=== PATIENT | female | born 1985 | race Caucasian/White ===

== ENCOUNTER → 2017-08-03 14:27 | Outpatient (CLI) | payer BC, SELFPAY ==
[2017-08-03 15:58] LABS: Absolute Lymphocyte Count 1.61 X10^3/ul (0.83-4.51); Absolute Neutrophil Count 3.5 X10^3/uL (2.0-7.7); Basophil# 0.04 X10^3/uL; Basophil% 0.7 % (0-1); Eosinophils% 3.4 % (0-5); Hematocrit 37.9 % (37-47); Hemoglobin 13.2 g/dl (12.0-15.0); Lymphocyte # 1.61 X10^3/ul (4.0); Lymphocyte % 27.7 % (19-41); Mean Corp Hgb Conc 34.8 g/gl (32-36); Mean Corpuscular Hgb 31.4 pg (27.0-32.0); Mean Corpuscular Volume 90.2 fL (81-99); Mean Platelet Vol. 9.3 fl (6.2-12.0); Monocyte# 0.44 X10^3/uL; Monocyte% 7.6 % (0-10); Neutrophil # 3.52 X10^3/uL (2.7-7.7); Neutrophil % 60.4 % (47-70); POSITIVE COUNT NO; POSITIVE DIFFERENTIAL NO; POSITIVE MORPHOLOGY NO; Platelet Count 242 K/mm3 (150-450); RBC Distribution Width CV 12.3 % (11.6-14.6); RBC Distribution Width SD 39.8 fl (35.1-43.9); White Blood Count 5.8 K/mm3 (4.4-11.0)
[2017-08-03 16:01] LABS: Color, Urine Straw (Yellow); Glucose, Dipstick Normal (Normal); Ketone-Dipstick Negative (Negative); Leukocyte Esterase-Dipstick Negative /ul (Negative); Nitrite-Dipstick Negative (Negative); Occult Blood-Urine Negative /ul (Negative); Protein-Dipstick Negative (Negative); Urine Bilirubin Dipstick Negative (Negative); Urine Clarity Clear (Clear); Urine Urobilinogen Normal (Normal)
[2017-08-03 16:16] LABS: Thyroid Stim Hormone (TSH) 1.97 uIU/mL (0.358-3.74)
[2017-08-03 16:27] LABS: Amphetamine Urine VISTA NEGATIVE (<1000 ng/mL); Barbiturate Urine VISTA NEGATIVE (< 200 ng/mL); Benzodiazepine Urine VISTA NEGATIVE (< 200 ng/mL); Cocaine Urine VISTA NEGATIVE (< 300 ng/mL); Ecstacy Urine VISTA NEGATIVE (< 500 ng/mL); Methadone Urine VISTA NEGATIVE (< 300 ng/mL); PCP Urine VISTA NEGATIVE (< 25 ng/mL); THC Urine VISTA NEGATIVE (< 50 ng/mL); Vista UDS pH Range 5
[2017-08-03 17:05] LABS: HIV - WCH Non-Reactive (Nonreactive); Rubella IgG > 500.0 IU/mL
[2017-08-05 08:01] LABS: HEPATITIS B SURFACE AG Negative (Negative); Hep C Antibodies <0.1 s/co ratio (0.0-0.9)
[2017-08-07 07:08] LABS: Prenatal RPR NONREACTIVE (NONREACTIVE)
== END ==
PROVIDERS: Visit Provider Obstetrics & Gynecology
DX: Z34.81 Encounter for supervision of other normal pregnancy, first trimester (principal); Z3A.00 Weeks of gestation of pregnancy not specified
CPT/HCPCS: 36415; 80307; 81002; 84443; 85025; 86703; 86762; 86803; 87340

== ENCOUNTER → 2017-11-30 11:20 | Outpatient (CLI) | payer BC, SELFPAY ==
[2017-11-30 12:08] LABS: Hematocrit 33.5 % (37-47); Hemoglobin 11.5 g/dl (12.0-15.0); Mean Corp Hgb Conc 34.3 g/gl (32-36); Mean Corpuscular Hgb 32.2 pg (27.0-32.0); Mean Corpuscular Volume 93.8 fL (81-99); Mean Platelet Vol. 9.5 fl (6.2-12.0); Platelet Count 218 K/mm3 (150-450); RBC Distribution Width CV 13.2 % (11.6-14.6); RBC Distribution Width SD 45.4 fl (35.1-43.9); Red Blood Count 3.57 M/mm3 (4.2-5.4); White Blood Count 7.6 K/mm3 (4.4-11.0)
[2017-11-30 12:10] LABS: Scan Indicated on CBC? Y/N NO
[2017-11-30 12:19] LABS: AST(SGOT) 13 U/L (15-37); Alanine Aminotransfer ALT/SGPT 14 U/L (13-56); Albumin, Serum 2.7 g/dL (3.2-5.0); Alkaline Phosphatase 65 U/L (45-117); Bilirubin, Direct 0.08 mg/dL (0.00-0.30); Globulin 3.6 g/dL (2.2-4.2); Glucose Challenge Gest 1H 50g 81 mg/dL (70-140); Protein, Total 6.3 g/dL (6.4-8.2)
== END ==
PROVIDERS: Visit Provider Obstetrics & Gynecology
DX: Z34.83 Encounter for supervision of other normal pregnancy, third trimester (principal)
CPT/HCPCS: 36415; 80076; 82950; 85027

== ENCOUNTER → 2018-01-11 11:40 | Outpatient (CLI) | payer BC, SELFPAY ==
[2018-01-11 13:39] LABS: Hematocrit 35.1 % (37-47); Hemoglobin 12.4 g/dl (12.0-15.0); Mean Corp Hgb Conc 35.3 g/gl (32-36); Mean Corpuscular Hgb 33.2 pg (27.0-32.0); Mean Corpuscular Volume 93.9 fL (81-99); Mean Platelet Vol. 10.1 fl (6.2-12.0); Platelet Count 246 K/mm3 (150-450); RBC Distribution Width CV 12.7 % (11.6-14.6); Red Blood Count 3.74 M/mm3 (4.2-5.4); White Blood Count 10.1 K/mm3 (4.4-11.0)
[2018-01-11 13:40] LABS: Scan Indicated on CBC? Y/N NO
[2018-01-11 13:49] LABS: Protein, Urine (Random) 14.7 mg/dL (<11.9)
[2018-01-11 13:52] LABS: AST(SGOT) 17 U/L (15-37); Alanine Aminotransfer ALT/SGPT 17 U/L (13-56); Albumin, Serum 2.8 g/dL (3.2-5.0); Alkaline Phosphatase 102 U/L (45-117); Bilirubin, Direct 0.07 mg/dL (0.00-0.30); Globulin 4.1 g/dL (2.2-4.2); Protein, Total 6.9 g/dL (6.4-8.2)
== END ==
PROVIDERS: Visit Provider Obstetrics & Gynecology
DX: O26.893 Other specified pregnancy related conditions, third trimester (principal); R10.11 Right upper quadrant pain; Z3A.00 Weeks of gestation of pregnancy not specified
CPT/HCPCS: 36415; 80076; 82570; 84156; 85027

== ENCOUNTER → 2018-01-26 10:43 | Outpatient (CLI) | payer BC, SELFPAY ==
[2018-01-26 15:28] LABS: Group B Strep DNA By PCR Negative (Negative); Internal Control PASS; Probe Check PASS; Specimen Processing Control PASS
== END ==
PROVIDERS: Visit Provider Obstetrics & Gynecology
DX: Z36.85 Encounter for antenatal screening for Streptococcus B (principal)
CPT/HCPCS: 87081; 87653

== ENCOUNTER 2018-02-18 10:45 | Inpatient (IN) | payer BC, SELFPAY ==
[2018-02-18] MEDS: Lactated Ringers 1,000 ML 50 ML IV (11:20)
[2018-02-18 11:54] LABS: Hematocrit 35.7 % (37-47); Hemoglobin 12.4 g/dl (12.0-15.0); Mean Corp Hgb Conc 34.7 g/gl (32-36); Mean Corpuscular Volume 92.2 fL (81-99); Mean Platelet Vol. 10.1 fl (6.2-12.0); Platelet Count 236 K/mm3 (150-450); RBC Distribution Width CV 12.8 % (11.6-14.6); Red Blood Count 3.87 M/mm3 (4.2-5.4); Scan Indicated on CBC? Y/N NO; White Blood Count 8.7 K/mm3 (4.4-11.0)
[2018-02-18 12:08] VITALS: BMI 29.6
[2018-02-18 12:14] LABS: ROM Internal Control Test YES-OK TO RESULT pt. (Internal QC)
[2018-02-18 12:16] LABS: ROM Patient Test POSITIVE (Negative)
[2018-02-18] MEDS: Oxytocin 30 units/NS 500 ml 30 UNITS/500 ML IV.SOLN 334 UNITS IV (14:32)
--- NOTE | 2018-02-18 14:43 | PCM.OB.VAG ---
Vaginal Delivery Maternal Presentation: Active Labor, Spontaneous Rupture of Membranes Amniotic Membrane Rupture Type: Spontaneous at home Amniotic Fluid Description: Clear Final GERMAIN: 02/18/18 Final GERMAIN Source: US <20 weeks Gestational age: 40 Weeks and 0 Days Date of Procedure: 02/18/18 Pre-Operative Diagnosis: IUP Post-Operative Diagnosis: IUP Surgery/ Procedure Performed: Spontaneous Vaginal Delivery Type of Anesthesia: None Description of Procedure: Spontaneous vaginal delivery of a viable male infant with Apgars of 8/9 from an occiput anterior presentation with clear amniotic fluid and normal three-vessel placenta. No episiotomy. First-degree midline laceration repaired with 3-0 Rapide suture. Sponge counts okay. Delivery physician: Zion Pepper MD. Presentation: Vertex Placental Delivery Description: Spontaneous Placenta Disposition: [facility] Cord Vessel Description: 3 Vessels Cord Gases drawn per routine: ABG Cord Entanglement: None Estimated Blood Loss: 250 cc Infant A gender: Male (1 minute): 8 (5 minute): 9 Episiotomy Description: None Laceration: Midline, 1st degree Medications given after delivery: IV Pitocin Complications: None
--- NOTE | 2018-02-18 14:45 | PCM.DCVAG ---
Discharge Diet: No Restrictions Discharge Activity: May Shower, May Take a Tub Bath May resume sexual activity in: 4-6 weeks Additional Activity Instructions:: Nothing in the vagina for 4-6 weeks. You may return to work/school in 6 weeks. Call your doctor if you observe: Fever of 101 or Higher, Inability to urinate, Inability to have a bowel movement, Using more than one pad per hour Additional Instructions: If you experience any of the following, contact your healthcare provider. Bleeding that soaks a pad every hour for 2 hours Unrelieved incision or abdominal pain Swelling, redness, discharge or bleeding from your incision or episiotomy site Your incision begins to separate Problems urinating (including inability to urinate or burning while urinating). Visual changes Severe headache Flu-like symptoms Pain or redness in one of both of your breasts Pain, warmth, tenderness or swelling in your legs, especially the calf area Frequent nausea and vomiting Symptoms of depression or anxiety If you experience any of the following, call 911 or go to the nearest Emergency Room. Chest pain Problems breathing Seizure activity Partial or complete paralysis of a body part, slurred speech, weakness or drooping of the face, or a sudden inability to walk or hold your balance Allergies/Adverse Reactions: Allergies banana [Banana] Allergy (Verified 03/26/13 08:00) Anaphylaxis kiwi Allergy (Verified 03/26/13 07:58) Anaphylaxis beans Allergy (Uncoded 03/26/13 08:00) Anaphylaxis Medications to take at Discharge Vits [Prenatabs FA ] 1 dose PO DAILY 03/26/13 Please Follow Up With: Arely Helton MD - [phone] When: Call to make an appointment with your doctor in 6 weeks. Test Results: Test results from this visit will be discussed in further detail at your follow-up appointment, if applicable.
[2018-02-18] MEDS: Oxytocin 30 units/NS 500 ml 30 UNITS/500 ML IV.SOLN 167 UNITS IV (15:02)
[2018-02-18] MEDS: Ibuprofen 600 MG Tablet PO (16:06)
[2018-02-18 20:14] VITALS: BP 119/68; PULSE 98; RESP 16; TEMP 36.6
[2018-02-18 23:58] VITALS: BP 132/66; PULSE 79; RESP 16; TEMP 36.3
[2018-02-19 04:32] VITALS: BP 124/69; PULSE 78; RESP 16; TEMP 36.1
--- NOTE | 2018-02-19 07:31 | PCM.PN.OB ---
Subjective: PPD#1 Precipitous delivery Doing well and would like to go home today. Bottle feeding. - Physical Exam General: Alert, Oriented x3, Cooperative, No apparent distress HEENT: Atraumatic Neck: Supple Abdomen: Soft - Fundus firm NT at umbilicus Neurological: Cranial nerves II-XII grossly intact Psych/Mental Status: Normal Affect Vital Signs Temp Pulse Resp BP 96.9 F L 78 16 124/69 H 02/19/18 04:32 02/19/18 04:32 02/19/18 04:32 02/19/18 04:32 Oxygen Delivery Method Room Air Weight: 85.729 kg Body Mass Index (BMI) 29.6 Laboratory Tests Past 24 Hrs 02/18/18 02/18/18 02/18/18 11:28 11:28 11:50 WBC 8.7 RBC 3.87 L Hgb 12.4 Hct 35.7 L MCV 92.2 MCH 32.0 MCHC 34.7 RDW 12.8 RDW Differential 43.0 Plt Count 236 MPV 10.1 Vag Amniotic Fld Detect POSITIVE H Blood Type A POSITIVE Antibody Screen NEGATIVE Medical Necessity - Tobacco Use Smoking Status: Never smoker Assessment/Plan PPD#1 Stable pp Dischg home today if baby is released. RTO in 6 wk to ofc for pp check, prn sooner.
[2018-02-19 08:50] VITALS: BP 132/69; PULSE 82; RESP 16; TEMP 36.6
[2018-02-19 12:00] VITALS: BP 122/73; PULSE 82; RESP 16; TEMP 36.2
== END 2018-02-19 16:15 | disposition home or self-care (01) | DRG 775 ==
PROVIDERS: Admitting Provider Obstetrics & Gynecology; Visit Provider Obstetrics & Gynecology
DX: O62.3 Precipitate labor (principal); O70.0 First degree perineal laceration during delivery; Z3A.40 40 weeks gestation of pregnancy; Z37.0 Single live birth
CPT/HCPCS: 59025; 59050; 84112; 85027; 86850; 86900; 99218; J7120; G0378

== ENCOUNTER → 2021-06-12 10:31 | Outpatient (CLI) | payer OTHER, SELFPAY ==
[2021-06-12 12:24] LABS: Absolute Neutrophil Count 4.2 X10^3/uL (2.0-7.7); Basophil# 0.04 X10^3/uL; Basophil% 0.6 % (0-1); Eosinophil# 0.15 X10^3/uL; Eosinophils% 2.4 % (0-5); Hematocrit 38.5 % (37-47); Hemoglobin 12.9 g/dL (12.0-15.0); Lymphocyte % 22.5 % (19-41); Mean Corp Hgb Conc 33.5 g/dL (32-36); Mean Corpuscular Hgb 31.1 pg (27.0-32.0); Mean Corpuscular Volume 92.8 fL (81-99); Mean Platelet Vol. 9.4 fl (6.2-12.0); Monocyte# 0.44 X10^3/uL; Monocyte% 7.1 % (0-10); NRBC Flagged by Analyzer 0 % (0-5); Neutrophil # 4.19 X10^3/uL (2.7-7.7); Neutrophil % 67.2 % (47-70); Platelet Count 307 K/mm3 (150-450); RBC Distribution Width CV 11.7 % (11.6-14.6); RBC Distribution Width SD 39.1 fl (35.1-43.9); Red Blood Count 4.15 M/mm3 (4.2-5.4); White Blood Count 6.2 K/mm3 (4.4-11.0)
[2021-06-12 12:50] LABS: ALB/GLOB Ratio 0.8 RATIO (0.9-2.4); AST(SGOT) 13 U/L (15-37); Alanine Aminotransfer ALT/SGPT 21 U/L (13-56); Albumin, Serum 3.1 g/dL (3.2-5.0); Alkaline Phosphatase 55 U/L (45-117); Anion Gap 8 (5-15); BUN 16 mg/dL (7-18); BUN/Creat Ratio 27.2 RATIO (10-20); Calcium,Total 8.6 mg/dL (8.5-10.1); Chloride 105 mmol/L (98-107); Cholesterol 203 mg/dL (200); Creatinine, Serum 0.59 mg/dL (0.55-1.02); EST Glomerular Filtration Rate 123 mL/min (>60); Est Glom Filt Rate - Afr Amer 149 mL/min (>60); Globulin 3.9 g/dL (2.2-4.2); Glucose 94 mg/dL (74-106); High Density Lipoprotein 61 mg/dL; Potassium 3.7 mmol/L (3.5-5.1); Sodium Level 139 mmol/L (136-145); Thyroid Stim Hormone (TSH) 2.88 uIU/mL (0.358-3.74); Triglycerides 178 mg/dL; Very Low Density Lipoprotein 36 mg/dL (5-40)
== END ==
PROVIDERS: Visit Provider Family Medicine
DX: Z00.00 Encounter for general adult medical examination without abnormal findings (principal); K21.9 Gastro-esophageal reflux disease without esophagitis
CPT/HCPCS: 36415; 80053; 80061; 84443; 85025

== ENCOUNTER → 2024-04-12 | Outpatient (CLI) | payer OTHER, SELFPAY ==
--- NOTE | 2024-04-12 11:05 | RAD_ITS ---
INDICATION: radiculopathy, cervical region EXAMINATION/TECHNIQUE: X-RAY - XR Spine Cervical 2 or 3 Views COMPARISON: No relevant prior comparison study available FINDINGS: VERTEBRAE: Preserved vertebral body height. No fracture. No spondylolisthesis. Preservation of the normal cervical lordosis. No significant facet arthropathy. DISCS: Disc spaces are maintained. NECK SOFT TISSUES: No prevertebral soft tissue widening. LUNG APICES: Clear. RAD/Cerv Spine 2 or 3 Views IMPRESSION: No significant abnormality is seen.. Electronically Signed: Rony Robles MD at 12:58 EDT ,
== END | disposition home or self-care (01) ==
PROVIDERS: PCP Family Medicine; Referring Provider Family Medicine; Visit Provider Family Medicine
DX: M54.12 Radiculopathy, cervical region (principal)
CPT/HCPCS: 72040

== ENCOUNTER → 2024-08-22 | Outpatient (CLI) | payer OTHER, SELFPAY ==
--- NOTE | 2024-08-22 08:48 | BI_ITS ---
PROCEDURE: DIAG MAMM W/CAD, BILAT REASON FOR EXAM: F, Age 38 y/o, left axillary pain due to recent injury. Aunts with breast cancer. TECHNIQUE: Bilateral screening digital breast tomosynthesis with 2D and 3D images. Computer aided detection. COMPARISON: None. This is a baseline mammogram. FINDINGS: The breasts are extremely dense which lowers the sensitivity of mammography. With the patient's history of left axillary pain, sonographic correlation recommended. No suspicious masses, areas of developing architectural distortion, or suspicious calcifications. BI/DIAG MAMM W/CAD, BILAT IMPRESSION: BI-RADS 0: INCOMPLETE - NEED ADDITIONAL IMAGING EVALUATION. Follow-up code: Sonographic correlation of the axillary region of the left josh st. The patient will be notified of the results by letter. Reading Location: [place] [id number]
--- NOTE | 2024-08-22 08:52 | US_ITS ---
PROCEDURE: EXT NON VASC LIMITED/SOFT TISS REASON FOR EXAM: Left axillary lump following prior injury. TECHNIQUE: Ultrasound imaging of the left axilla was obtained.. COMPARISON: None. FINDINGS: There are 3 benign-appearing left axillary lymph nodes. The largest measures 1.9 cm x 1.4 cm x 0.6 cm. US/Ext Non Vasc Limited/Soft Tiss IMPRESSION: Findings suggestive of 3 benign-appearing axillary lymph nodes as described. Reading Location: [facility]
== END | disposition home or self-care (01) ==
LOC: OPBI 08:48
PROVIDERS: PCP Family Medicine; Referring Provider Family Medicine; Visit Provider Family Medicine
DX: R22.32 Localized swelling, mass and lump, left upper limb (principal)
CPT/HCPCS: 76882; 77062; 77066; G0279

== ENCOUNTER → 2024-11-14 | Outpatient (CLI) | payer OTHER, SELFPAY ==
--- NOTE | 2024-11-14 06:27 | CT_ITS ---
PROCEDURE: SOFT TISSUE NECK WITH CONTRAST 11/14/2024 REASON FOR EXAM: RIGHT NECK MASS TECHNIQUE: CT of the soft tissues of the neck from the orbits to the upper mediastinum with intravenous contrast. CONTRAST: Isovue-350. VOLUME: 100 mL One or more dose reduction techniques were used (e.g., Automated exposure control, adjustment of the mA and/or kV according to patient size, use of iterative reconstruction technique). RADIATION DOSE SUMMARY: CTDlvol: 17.2 mGy DLP: 502 mGycm COMPARISON: None. FINDINGS: Enlarged mediastinal and hilar lymph nodes with the largest measuring 1.6 cm. Bilateral mildly enlarged carotid space lymph nodes with the largest on the right measuring 1.3 cm, corresponding to the palpable clinical abnormality. No fluid collection or mass lesion is identified. Normal bilateral parotid glands. Normal bilateral channel specialist spaces. Normal bilateral parapharyngeal spaces. Normal bilateral sublingual and submandibular glands. Normal sublingual and submandibular spaces. Normal visualized nasopharynx. Normal retropharyngeal space. Normal perivertebral space. Normal visualized bilateral faucial tonsils. The visualized tongue, tongue base and oropharynx are normal. There is no demonstrated solid or cystic mass lesion. There is no abnormal contrast enhancement. Normal epiglottis, bilateral vallecula and hypopharynx. The pre-epiglottic and paraglottic adipose spaces are normal. Normal visualized bilateral piriform sinuses, aryepiglottic folds, vocal cords, and arytenoid-cricoid articulations. Normal subglottic trachea. Normal bilateral lobes of the thyroid gland. Normal visualized pulmonary apices. Normal visualized paranasal sinuses. Normal visualized cervical spine. CT/Soft Tissue Neck WITH Contrast IMPRESSION: 1. Enlarged mediastinal and hilar lymph nodes with the largest measuring 1.6 cm . 2. Bilateral mildly enlarged carotid space lymph nodes with the largest on the right measuring 1.3 cm, corresponding to the palpable clinical abnormality. 3. No fluid collection or mass lesion is identified. Reading Location: [place] [id number]
== END | disposition home or self-care (01) ==
LOC: CT 06:26
PROVIDERS: PCP Family Medicine; Referring Provider Otolaryngology; Visit Provider Otolaryngology
DX: R22.1 Localized swelling, mass and lump, neck (principal)
CPT/HCPCS: 70491; Q9967

== ENCOUNTER 2025-04-14 20:18 | Emergency (ER) | payer OTHER, SELFPAY ==
[2025-04-14 20:18] VITALS: BP 165/79; PULSE 107; RESP 16; TEMP 36.6; O2SAT 98; BMI 29.1
--- NOTE | 2025-04-14 20:42 | EKG12_ITS ---
Test Reason : CHEST PAIN
--- NOTE | 2025-04-14 20:45 | ED.VIS.CHEST ---
HPI History of Present Illness Chief Complaint: Chest Pain Narrative Narrative: Chief complaint and HPI: 39-year-old female with no significant past medical history presents for evaluation of intermittent chest pain x 1 week. Patient states for the past week she has been having intermittent chest pain which she describes as burning and located in the mid sternum/upper epigastrium. She states at times she feels nauseated or generally unwell when she develops the pain. States it is similar to her acid reflux in which she started taking her Prilosec however it is not helping. Nothing specifically brings on the pain although she does notice that it is more common at night. Not associated with exertion. She denies any shortness of breath. Non-smoker. Currently not having chest pain. Denies any recent travel or surgery. Review of systems: See HPI Medications: As listed on the chart Allergies: As listed on the chart PFSH: Per chart Vital signs: As listed on the chart. Reviewed. Gen: A&O x3, NAD Head: Normocephalic, atraumatic Eyes: No sclera icterus, conjunctiva clear ENT: Moist mucous membranes Neck: Trachea midline CV: RRR, no murmurs, no peripheral edema Resp: Lungs CTA BL, no w/r/c GI: Abd soft, non-distended, non-tender, no r/r/g Musc: Full ROM, no deformity Skin: Warm, dry Psych: Cooperative, appropriate mood and affect PFSH PFSH Medical History no medical history Home Medications ?Medication ?Instructions ?Recorded ?Last Taken ?Type vits,calcium no.78-iron 1 dose PO DAILY 03/26/13 02/18/18 08:00 History fumarate-folic acid 29 mg-1 mg tablet (Prenatabs FA) Allergy/AdvReac Type Severity Reaction Status Date / Time banana (Banana) Allergy Anaphylaxis Verified 04/14/25 20:20 ribera Allergy Anaphylaxis Verified 04/14/25 20:20 kiwi Allergy Anaphylaxis Verified 04/14/25 20:20 doxycycline AdvReac Mild headache Verified 04/14/25 20:20 Family History no significant family his Surgical History no surgical history Social History Smoking Status: Never smoker EXAM Physical Exam Const Vital Signs: 04/14/25 20:18 04/14/25 20:36 04/14/25 21:18 Temperature 98 F Temperature Source Oral Pulse Rate 107 H 86 Respiratory Rate 16 16 Respiratory Effort Normal Non-Labored Blood Pressure 165/79 H 121/78 H Blood Pressure Mean 107 92 Pulse Ox 98 99 Oxygen Delivery Method Room Air Room Air 04/14/25 22:00 04/14/25 23:00 Temperature Temperature Source Pulse Rate 90 79 Respiratory Rate 18 Respiratory Effort Blood Pressure 121/76 H 127/74 H Blood Pressure Mean 91 91 Pulse Ox 100 98 Oxygen Delivery Method Room Air Room Air MDM MDM MDM Narrative Medical decision making narrative: 39-year-old female with no significant past medical history presents for evaluation of intermittent chest pain x 1 week. Patient states for the past week she has been having intermittent chest pain which she describes as burning and located in the mid sternum/upper epigastrium. She states at times she feels nauseated or generally unwell when she develops the pain. States it is similar to her acid reflux in which she started taking her Prilosec however it is not helping. Nothing specifically brings on the pain although she does notice that it is more common at night. Patient describes her pain is atypical, suspect more of GERD/gastritis however differential also includes electrolyte abnormality, intrathoracic abnormality, ACS. Patient currently not having any chest pain. Will give Pepcid. Chest pain workup ordered. CBC without leukocytosis or anemia. D-dimer unremarkable. BMP unremarkable. Troponin unremarkable x 2. On reevaluation, patient still not having chest pain. At this point in time no clear etiology for her chest pain. Her chest pain is atypical. I suspect more of a GERD/gastritis. Her heart score is a a 0 which places her at low risk for ACS. Will place her on Protonix. Recommend following up with primary care physician. Return back to ED symptoms change or worsen. She confirmed understand the plan. Patient stable to discharge home. EKG: Interpreted by me/EM physician: EKG shows normal sinus rhythm without any acute ischemic changes. Heart rate 98 Diagnostic: Interpreted by me/EM physician: Chest x-ray pneumonia, effusion, cardiomegaly, pneumothorax Impression: 1. Atypical chest pain Lab Data Labs: Laboratory Results - last 24 hr 04/14/25 04/14/25 20:38 22:26 WBC 6.1 RBC 4.30 Hgb 13.5 Hct 38.3 MCV 89.1 MCH 31.4 MCHC 35.2 RDW Std Deviation 37.2 RDW Coeff of Elena 11.7 Plt Count 335 MPV 8.9 Immature Gran % (Auto) 0.300 Neut % (Auto) 63.3 Lymph % (Auto) 20.5 [place] % (Auto) 11.1 H Eos % (Auto) 4.0 Baso % (Auto) 0.8 Absolute Neuts (auto) 3.8 Absolute Lymphs (auto) 1.24 Nucleated RBC % 0 D-Dimer Quant (PE/DVT) 0.27 Sodium 139 Potassium 3.8 Chloride 103 Carbon Dioxide 24.4 Anion Gap 12 BUN 15 Creatinine 0.73 Estim Creat Clear Calc 110.50 Est GFR (MDRD) Non-Af 107 BUN/Creatinine Ratio 20.6 H Glucose 114 H Calcium 9.4 Total Bilirubin 0.21 AST 22 ALT 25 Alkaline Phosphatase 76 Troponin T High Sens < 6 Troponin T Hi Sens 2 Hr < 6 Total Protein 7.5 Albumin 4.3 Globulin 3.2 Albumin/Globulin Ratio 1.3 Radiography Diagnostic Testing: Clinical Impression(s) from Imaging Studies Chest X-Ray 04/14/25 21:04 IMPRESSION: No acute cardiopulmonary disease. Reading Location: [facility] Discharge Plan Triage Chief Complaint: Chest Pain ED Provider: Nir Cardoza Dx/Rx/DC Orders Prescriptions: No Action vit,apollo [id number] [Prenatabs FA] 1 TABLET tablet 1 dose PO DAILY Primary Care Provider: Zion House Referrals: Zion House MD [Primary Care Provider, Family Practice] Print Language: Indonesian
[2025-04-14] MEDS: Famotidine 200 MG/20 ML MDV 20 MG in 0.9% Normal Saline (Pres. free 8 ML 300 MG IV (20:49)
--- NOTE | 2025-04-14 21:04 | RAD_ITS ---
PROCEDURE: RAD/Chest PA and Lateral
[2025-04-14 21:08] LABS: D-Dimer Quantitative (DVT/PE) 0.27 FEU/ug/m (0.27-0.49)
[2025-04-14 21:13] LABS: Hematocrit 38.3 % (37-47); Hemoglobin 13.5 g/dL (12.0-15.0); Immature Granulocytes Count 0.020 X10^3/uL (0.0-0.0); Mean Corp Hgb Conc 35.2 g/dL (32-36); Mean Corpuscular Volume 89.1 fL (81-99); Mean Platelet Vol. 8.9 fl (6.2-12.0); NRBC Flagged by Analyzer 0 % (0-5); Platelet Count 335 K/mm3 (150-450); RBC Distribution Width CV 11.7 % (11.6-14.6); RBC Distribution Width SD 37.2 fl (35.1-43.9); Red Blood Count 4.30 M/mm3 (4.2-5.4); White Blood Count 6.1 K/mm3 (4.4-11.0)
[2025-04-14 21:18] VITALS: BP 121/78; PULSE 86; RESP 16; O2SAT 99
[2025-04-14 21:41] LABS: AST(SGOT) 22 U/L (<=31); Alanine Aminotransfer ALT/SGPT 25 U/L (<=34); Albumin, Serum 4.3 g/dL (3.5-5.0); Alkaline Phosphatase 76 U/L (35-104); Anion Gap 12 (5-15); BUN 15 mg/dL (4-19); BUN/Creat Ratio 20.6 RATIO (10-20); Calcium,Total 9.4 mg/dL (7.6-11.0); Carbon Dioxide 24.4 mmol/L (21.0-32.0); Chloride 103 mmol/L (98-108); Estimated Creatinine Clearance 110.50 ml/min (50-250); Globulin 3.2 g/dL (2.2-4.2); Glucose 114 mg/dL (70-99); Potassium 3.8 mmol/L (3.3-5.1)
[2025-04-14 21:55] LABS: Troponin T High Sensitivity < 6 ng/L (<=14)
[2025-04-14 22:00] VITALS: BP 121/76; PULSE 90; RESP 18; O2SAT 100
[2025-04-14 23:00] VITALS: BP 127/74; PULSE 79; O2SAT 98
[2025-04-14 23:10] LABS: Troponin T High Sens 2 HR < 6 ng/L (<=14)
[2025-04-14 23:20] VITALS: BP 127/74; PULSE 79; RESP 18; TEMP 36.6; O2SAT 98
== END 2025-04-14 23:28 | disposition home or self-care (01) ==
PROVIDERS: Emergency Provider Surgery; PCP Family Medicine; Visit Provider Surgery
DX: R07.89 Other chest pain (principal)
CPT/HCPCS: 71046; 80053; 84484; 85025; 85379; 93005; 96365; 99284; A4216

== ENCOUNTER → 2025-04-24 | Outpatient (CLI) | payer OTHER, SELFPAY ==
--- NOTE | 2025-04-24 06:56 | CT_ITS ---
PROCEDURE: CT/Soft Tissue Neck WITH Contrast
== END | disposition home or self-care (01) ==
LOC: CT 06:53
PROVIDERS: PCP Family Medicine; Referring Provider Otolaryngology; Visit Provider Otolaryngology
DX: R59.0 Localized enlarged lymph nodes (principal); K11.20 Sialoadenitis, unspecified
CPT/HCPCS: 70491; Q9967